=== PATIENT | male | born 1945 | race Asian ===

== ENCOUNTER → 2016-07-08 | Outpatient (CLI) | payer MEDICARE, OTHER ==
[~2016-07-08] MED LIST: AMLO-145 PO
[2016-07-08 13:14] LABS: ADD SCAN DIFF NO
[2016-07-08 13:29] LABS: BASOPHILS % 0.6 % (0.0-2.0); EOSINOPHILS # 0.1 10^3/ul (0.0-0.5); EOSINOPHILS % 1.7 % (0.0-7.0); HEMATOCRIT 43.7 % (42.0-52.0); HEMOGLOBIN 15.1 g/dl (14.0-18.0); LYMPHOCYTES # 1.7 10^3/ul (0.8-2.9); MEAN CORPUSCULAR HEMOGLOBIN 30.6 pg (29.0-33.0); MEAN CORPUSCULAR HGB CONC 34.6 g/dl (32.0-37.0); MEAN CORPUSCULAR VOLUME 88.6 fl (82.0-101.0); MEAN PLATELET VOLUME 8.8 fl (7.4-10.4); MONOCYTE # 0.4 10^3/ul (0.3-0.9); MONOCYTES % 8.4 % (0.0-11.0); NEUTROPHIL # 2.9 10^3/ul (1.6-7.5); NEUTROPHILS % 55.9 % (39.0-77.0); PLATELET COUNT 257 10^3/UL (140-415); RED BLOOD COUNT 4.93 10^6/ul (4.70-6.10); RED CELL DISTRIBUTION WIDTH 12.1 % (11.5-14.5); WHITE BLOOD COUNT 5.2 10^3/ul (4.8-10.8)
[2016-07-08 13:32] LABS: ALBUMIN 4.7 g/dl (3.3-4.9); ALBUMIN/GLOBULIN RATIO 1.23; BILIRUBIN,INDIRECT 0.4 mg/dl (0-1.1); BILIRUBIN,TOTAL 0.4 mg/dl (0.2-1.3); CALCIUM 9.8 mg/dl (8.4-10.2); CHOL/HDL RATIO 3.7 RATIO; CREATININE 1.01 mg/dl (0.61-1.24); POTASSIUM 4.1 mmol/L (3.5-5.1); TOTAL PROTEIN 8.5 g/dl (6.1-8.1)
[2016-07-08 14:00] LABS: THYROID STIMULATING HORMONE 2.16 MIU/L (0.465-4.680)
== END | disposition home or self-care (01) ==
LOC: LAB 12:45
PROVIDERS: ATTEND Internal Medicine
DX: E11.9 Type 2 diabetes mellitus without complications (principal); I10 Essential (primary) hypertension
CPT/HCPCS: 80053; 80061; 83036; 84443; 85025

== ENCOUNTER → 2016-09-01 | Outpatient (CLI) | payer MEDICARE, OTHER ==
--- NOTE | 2016-09-01 15:18 | RADRPT ---
PROCEDURE: XR Left Shoulder. CLINICAL INDICATION: Left shoulder pain. TECHNIQUE: Three views. Frontal internal rotation, frontal external rotation, and scapular Y-view . COMPARISON: No prior study is available for comparison. FINDINGS: There is no fracture or dislocation. There is grade 2 left acromioclavicular joint separation. Articular surfaces are intact. There is no lytic or blastic lesion. There is no radiopaque foreign body. IMPRESSION: 1. Grade II left AC joint separation. 2. Otherwise unremarkable images of the left shoulder. RPTAT: QQ .Klapesh Escamilla MD, MD Date Time Electronically viewed and signed by .Kalpesh Escamilla MD, MD on 09/01/2016 15:18 .R/
--- NOTE | 2016-09-01 15:18 | RADRPT ---
PROCEDURE: XR Lumbar Spine. CLINICAL INDICATION: Back pain. TECHNIQUE: Three views. AP, lateral and cone-down lateral view of the lumbar spine were obtained. COMPARISON: No prior studies are available for comparison. FINDINGS: There is normal stature and alignment of the vertebrae. There is no fracture. There is no lytic or blastic lesion. There are degenerative changes with osteophytes throughout. There is disk space narrowing and L4-5. Vascular calcifications are present consistent with atherosclerosis. IMPRESSION: 1. Degenerative changes as described above. 2. Atherosclerosis. RPTAT: QQ .Kalpesh Escamilla MD, MD Date Time Electronically viewed and signed by .Kalpesh Escamilla MD, on 09/01/2016 15:18 .R/
== END | disposition home or self-care (01) ==
LOC: RAD 11:36
PROVIDERS: ATTEND Internal Medicine
DX: M25.512 Pain in left shoulder (principal); M54.5 Low back pain
CPT/HCPCS: 72100; 73030

== ENCOUNTER 2017-11-03 08:16 | Day surgery (SDC) | END 2017-11-03 14:23 | disposition home or self-care (01) ==

== ENCOUNTER 2018-06-25 12:46 | Inpatient (IN) | payer MEDICARE, OTHER ==
[~2018-06-25] VITALS: Ht 170.2 cm; Wt 65.9 kg
[~2018-06-25 12:46] MED LIST changes: -AMLO-145 PO; +ATOR40TA68 PO; +LISI40TA3 PO; +MELO7.5O PO; +METF500T24 PO; +TAMS0.4C2 PO
[2018-06-25] MEDS ORDERED: DILTIAZEM 25 MG INJ IV STA (13:08)
[2018-06-25] MEDS ORDERED: DILTIAZEM-D5W 125MG/125ML DRIP 125 ML IV STA (13:08)
[2018-06-25] MEDS ORDERED: ENOXAPARIN 40 MG/0.4 ML SYG SC ONE (13:30)
[2018-06-25] MEDS ORDERED: ACETAMINOPHEN 325 MG TAB PO PRN ×2 (13:30→20:30)
[2018-06-25] MEDS ORDERED: ONDANSETRON 4 MG INJ IV PRN ×2 (13:30→20:30)
--- NOTE | 2018-06-25 13:33 | ERD ---
ER Documentation Chief Complaint Chief Complaint pt is loyda martinez, sent over by PMD for chest pain , dizziness HPI This is a 72-year-old male with a past medical history of rectal cancer status post resection and colostomy, hypertension, diabetes who is presenting with approximately 2 weeks of progressive worsening palpitations, lightheadedness, shortness of breath and feeling generally unwell. He does not endorse any chest pain currently, but he has had intermittent pain episodes described as waxing and waning, mild to moderate, left-sided, nonradiating and aching. The patient does not endorse any alleviating or exacerbating factors. The patient saw his primary care physician this morning who referred him to the emergency department for his symptoms. He had an irregularly irregular rhythm and was tachycardic in the office. The patient does not endorse any focal deficits. He does not endorse any weakness or numbness or tingling to the face or extremities. The patient denies fever or chills. The patient has had no headache or vision changes. The patient does not endorse neck or back pain. The patient denies nausea or vomiting. The patient denies abdominal pain. The patient denies changes to bowel movements or urination. ROS All systems reviewed and are negative except as per history of present illness. Medications Home Meds Reported Medications Lisinopril* (Lisinopril*) 40 Mg Tablet, 40 MG PO DAILY, #30 TAB 06/25/18 Tamsulosin Hcl* (Tamsulosin Hcl*) 0.4 Mg Cap.er.24h, 0.4 MG PO HS, CAP 06/25/18 Metformin Hcl* (Metformin Hcl*) 500 Mg Tablet, 500 MG PO WITH BREAKFAST DINNE, #60 TAB 06/25/18 Discontinued Reported Medications Atorvastatin* (Atorvastatin*) 40 Mg Tablet, 20 MG PO QHS, #30 TAB 11/03/17 Meloxicam* (Meloxicam*) 7.5 Mg/5 Ml Oral.susp, 15 MG PO DAILY, #300 ML 11/03/17 Tamsulosin Hcl* (Tamsulosin Hcl*) 0.4 Mg Cap.er.24h, 0.4 MG PO DAILY, CAP 11/03/17 Lisinopril* (Lisinopril*) 40 Mg Tablet, 40 MG PO DAILY, #30 TAB 11/03/17 Metformin Hcl* (Metformin Hcl*) 500 Mg Tablet, 500 MG PO BID WITH MEALS, #90 TAB 11/03/17 Allergies Allergies: Coded Allergies: No Known Allergy (Unverified , 06/25/18) PMhx/Soc History of Surgery: Yes (RECTAL SX.) Anesthesia Reaction: No Hx Neurological Disorder: No Hx Respiratory Disorders: No Hx Cardiac Disorders: No Hx Psychiatric Problems: No Hx Miscellaneous Medical Probl: Yes (PROSTATE, HTN) Hx Alcohol Use: Yes Hx Substance Use: No Hx Tobacco Use: Yes FmHx Family History: diabetes Physical Exam Vitals Vital Signs Date Temp Pulse Resp B/P (MAP) Pulse Ox O2 O2 Flow FiO2 Time Delivery Rate 06/25/18 98.3 101 20 162/74 98 13:04 (103) Physical Exam Const: No apparent distress, well-developed, well-nourished Head: Normocephalic, Atraumatic Eyes: Normal Conjunctiva. Extraocular movements intact. Pupils equal, round and reactive to light ENT: Normal External Ears, Nose and Mouth. Neck: Full range of motion. No meningismus. Resp: Clear to auscultation bilaterally, No wheezes, rales or rhonchi Cardio: Irregularly irregular rhythm. Tachycardia. No murmurs, rubs or gallops Abd: Soft, non tender, non distended. Normal bowel sounds. Colostomy in place. Skin: No petechiae or rashes Back: No midline tenderness. No CVA tenderness Ext: No cyanosis, or edema Neur: Awake and alert, oriented 4. Cranial nerves intact. No facial droop. Normal strength, sensation and coordination. Psych: Normal Mood and Affect Result Diagram: 06/25/18 1330 06/25/18 1330 Results 24 hrs Laboratory Tests Test 06/25/18 13:29 06/25/18 13:30 Free Thyroxine 0.95 ng/dl White Blood Count 5.3 10^3/ul Red Blood Count 5.02 10^6/ul Hemoglobin 15.2 g/dl Hematocrit 46.6 % Mean Corpuscular Volume 92.8 fl Mean Corpuscular Hemoglobin 30.3 pg Mean Corpuscular Hemoglobin Concent 32.6 g/dl Red Cell Distribution Width 12.4 % Platelet Count 225 10^3/UL Mean Platelet Volume 9.2 fl Immature Granulocytes % 0.400 % Neutrophils % 59.4 % Lymphocytes % 30.1 % Monocytes % 7.0 % Eosinophils % 2.3 % Basophils % 0.8 % Nucleated Red Blood Cells % 0.0 /100WBC Immature Granulocytes # 0.020 10^3/ul Neutrophils # 3.2 10^3/ul Lymphocytes # 1.6 10^3/ul Monocytes # 0.4 10^3/ul Eosinophils # 0.1 10^3/ul Basophils # 0.0 10^3/ul Nucleated Red Blood Cells # 0.0 10^3/ul Prothrombin Time 12.1 Sec Prothrombin Time Ratio 0.9 INR International Normalized Ratio 0.89 Sodium Level 141 mmol/L Potassium Level 4.3 mmol/L Chloride Level 105 mmol/L Carbon Dioxide Level 24 mmol/L Anion Gap 12 Blood Urea Nitrogen 23 mg/dl Creatinine 1.20 mg/dl Est Glomerular Filtrat Rate mL/min mL/min Glucose Level 94 mg/dl Calcium Level 9.9 mg/dl Troponin I < 0.012 ng/ml B-Type Natriuretic Peptide 95 PG/ML Current Medications Medications Dose Sig/Meghana Start Time Status Last (Trade) Ordered Route PRN Stop Time Admin Dose Reason Admin Diltiazem 20 mg ONCE STAT 06/25/18 DC 06/25/18 HCl IV 13:08 13:22 (Cardizem Iv) 06/25/18 13:14 Diltiazem 125 ml @ 5 ONCE STAT 06/25/18 HCl mls/hr IV 13:08 06/26/18 14:07 Ondansetron 4 mg ER BRIDGE 06/25/18 HCl (Zofran PRN IV 13:30 Inj) NAUSEA/VOMITI 06/26/18 13:29 NG 650 mg ER BRIDGE 06/25/18 Acetaminophen PRN PO 13:30 (Tylenol .MILD PAIN 06/26/18 13:29 Tab) 1-3 OR TEMP Enoxaparin 80 mg ONCE ONCE 06/25/18 DC 06/25/18 Sodium SC 13:30 13:22 (Lovenox) 06/25/18 13:31 Aspirin 324 mg ONCE ONCE 06/25/18 DC 06/25/18 (Aspirin) PO 14:00 14:42 06/25/18 14:01 Sodium 250 ml @ Q1H ONCE 06/25/18 DC Chloride 250 mls/hr IV 14:00 06/25/18 14:59 Sodium 1,000 ml @ [id number] IV 06/25/18 06/25/18 Chloride 75 mls/hr 15:00 14:44 06/26/18 04:19 Apixaban 5 mg BID PO 06/25/18 (Eliquis) 21:00 Diltiazem 120 mg BID PO 06/25/18 06/25/18 HCl 14:00 14:43 (Cardizem Cd) Procedures/MDM MDM The patient's presentation warrants further investigation. Previous medical records, if available, were reviewed. LABS The patient's laboratory testing was obtained and reviewed. No emergent treatment was required unless described below. CBC: No E/o systemic infection or severe anemia or thrombocytopenia Chemistry: No E/o severe acidosis or alkalosis or renal failure or diabetic ketoacidosis. Elevated BUN, potentially concerning for dehydration. PT/INR: No E/o significant coagulopathy Troponin: No E/o acute ischemia BNP: No E/o heart failure TFTs: Unremarkable EKG EKG read by me: Rate/Rhythm: Tachycardia, irregular regular rhythm and a pattern of atrial flutter with variable AV block. Intervals: Normal QRS. No P waves [place]: Normal Impression: No evidence of acute ischemia. Atrial flutter Repeat EKG read by me: Rate/Rhythm: Sinus rhythm at 63 bpm. Intervals: Normal QRS and QTc. Prolonged IL interval indicating a first- degree AV block. [place]: Normal Impression: No evidence of ischemia. First-degree AV block. IMAGING Imaging and Radiology interpretation reviewed. CXR FINDINGS: There is a right internal jugular approach implantable port with its tip projecting near the cavoatrial junction, similar to 02/08/2013. There is stable mild enlargement of the cardiac silhouette. The lungs are well expanded a nd show normal vascularity. No focal opacity, pleural effusion, or pneumothorax is identified. The skeletal structures and soft tissues are unremarkable. IMPRESSION: No evidence of an acute cardiopulmonary process. Stable mild cardiomegaly. Right sided implantable port in place. Electronically viewed and signed by Lillie Louise MD, MD on 06/25/2018 13:59 TREATMENT/DISPOSITION The patient presents in atrial flutter. This is been ongoing for approximately 2 weeks given his symptom duration. I do not feel that cardioversion would be appropriate at this time. The patient was given a dose of Lovenox in the emergency department. The patient will require an echocardiogram to evaluate for any clot burden. The patient was given Cardizem in the emergency department. The patient converted in the emergency department. He did not require a Cardizem drip. The patient's chest xray does not reveal pneumonia or pneumothorax or pleural effusions or pulmonary edema. The patient does not have a widened mediastinum and does not have signs or symptoms concerning for thoracic aortic aneurysm or dissection. The patient does not have pneumomediastinum or signs concerning for esophageal tear or rupture. The patient has no clinical or radiographic signs of pericardial effusion or tamponade. The patient does not have pneumoperitoneum and I have decreased suspicion of viscus perforation as possible referred pain. The patient does not have a history of heart failure and I have low suspicion for this. The patient does not have a diagnosis of COPD and is not wheezing today. The patient is not tachypneic or hypoxic. The patient is breathing comfortably and without pleuritic pain. The patient is not on hormonal therapy. The patient has no history of clotting or bleeding disorders. The patient has no calf tenderness. The patient has had no hemoptysis. I have decreased suspicion for PE. The patient's troponin is reassuring. His EKG does not reveal obvious acute ischemia. I have low suspicion for acute coronary syndrome. ADMISSION At this time, I feel that the patient requires admission for further evaluation and management. The patient will be admitted to Dr. Gallo in accordance with the patient's insurance. The patient was accepted to telemetry at 1320PM on 06/25/2018. CRITICAL CARE NOTE Time: 35 minutes excluding all billable procedures. Treatments/Evaluations: The patient was at risk of hemodynamic compromise. Timing of critical care involved close serial monitoring, evaluation of the patient's medical record including previous records & current laboratory/imaging studies, potential interventions for prevention of hemodynamic/ cardiopulmonary/ neurologic compromise, maintaining tight fluid balance, and any discussions with the family and/or consultants regarding the patient's status and prognosis. Disclaimer: Inadvertent spelling and grammatical errors are likely due to EHR/dictation software use and do not reflect on the overall quality of patient care. Note that the electronic time recorded on this note does not necessarily reflect the actual time of the patient encounter. Departure Diagnosis: Primary Impression: Atrial flutter Atrial flutter type: atypical Qualified Codes: I48.4 - Atypical atrial flutter Additional Impressions: Palpitations Shortness of breath Lightheadedness Elevated BUN Condition: Serious MILA GRAMAJO MD Jun 25, 2018 13:31
[2018-06-25] MEDS ORDERED: TAMS0.4C2 PO (13:50)
[2018-06-25] MEDS ORDERED: METF500T24 PO (13:50)
[2018-06-25] MEDS ORDERED: LISI40TA3 PO (13:51)
[2018-06-25] MEDS ORDERED: ASPIRIN 81 MG TAB PO ONE (14:00)
[2018-06-25] MEDS ORDERED: SOD CHLORIDE 0.9% 250 ML IV ONE (14:00)
--- NOTE | 2018-06-25 14:07 | CONS ---
Assessment/Plan Assessment/Plan Hospital Course (Demo Recall) Newly diagnosed atrial flutter with rapid ventricular rates, improved Hypertension Diabetes History of Colon cancer status post resection -Patient presented to his primary care physician with symptoms of dizziness, fatigue and lightheadedness found to be tachycardic. [facility] and found to be in atrial flutter with rapid ventricular rates. Patient given IV Cardizem and heart rate now controlled and feels significantly better -Some labs are still pending including TSH -Would adjust to p.o. Cardizem at the current time, until echo results -Check echocardiogram -In discussion with family, patient is active, exercises and is steady on his feet usually. Would continue anticoagulation at the current time. Consultation Date/Type/Reason Admit Date/Time Type of Consult Cardiology Reason for Consultation Arrhythmia Date/Time of Note DATE: 06/25/18 TIME: 13:59 Hx of Present Illness This is a 72-year-old male with past medical history of colon cancer status post surgery, hypertension, diabetes who presents with 2 weeks symptoms of not fee ling well and dizziness. Patient went to go see his primary care physician today and was found to be tachycardic and sent to the emergency room. Patient prior to this denies any chest pain, was having intermittent shortness of breath. Patient found to be in atrial flutter in the emergency room, once heart rate was controlled, his symptoms have improved significantly. Denies any current chest pain, shortness of breath or palpitations. He denies any dizziness or lightheadedness currently. 12 point review of systems was performed with all pertinent positives and negatives mentioned above and all else is negative Past Medical History Colon CA Medical History: diabetes, hypertension Home Meds Reported Medications Lisinopril* (Lisinopril*) 40 Mg Tablet, 40 MG PO DAILY, #30 TAB 06/25/18 Tamsulosin Hcl* (Tamsulosin Hcl*) 0.4 Mg Cap.er.24h, 0.4 MG PO HS, CAP 06/25/18 Metformin Hcl* (Metformin Hcl*) 500 Mg Tablet, 500 MG PO WITH BREAKFAST DINNE, #60 TAB 06/25/18 Discontinued Reported Medications Atorvastatin* (Atorvastatin*) 40 Mg Tablet, 20 MG PO QHS, #30 TAB 11/03/17 Meloxicam* (Meloxicam*) 7.5 Mg/5 Ml Oral.susp, 15 MG PO DAILY, #300 ML 11/03/17 Tamsulosin Hcl* (Tamsulosin Hcl*) 0.4 Mg Cap.er.24h, 0.4 MG PO DAILY, CAP 11/03/17 Lisinopril* (Lisinopril*) 40 Mg Tablet, 40 MG PO DAILY, #30 TAB 11/03/17 Metformin Hcl* (Metformin Hcl*) 500 Mg Tablet, 500 MG PO BID WITH MEALS, #90 TAB 11/03/17 Medications Current Medications Diltiazem HCl 125 ml @ 5 mls/hr ONCE STAT IV ; Start 06/25/18 at 13:08; Stop 06/26/18 at 14:07 Ondansetron HCl (Zofran Inj) 4 mg ER BRIDGE PRN IV NAUSEA/VOMITING; Start 06/25/18 at 13:30; Stop 06/26/18 at 13:29 Acetaminophen (Tylenol Tab) 650 mg ER BRIDGE PRN PO .MILD PAIN 1-3 OR TEMP; Start 06/25/18 at 13:30; Stop 06/26/18 at 13:29 Aspirin (Aspirin) 324 mg ONCE ONCE PO ; Start 06/25/18 at 14:00; Stop 06/25/18 at 14:01 Allergies: Coded Allergies: No Known Allergy (Unverified , 06/25/18) Past Surgical History Including but not limited to colol resection, port placement Family History Significant Family History: no pertinent family hx Social History Smoking Status: Former smoker Exam/Review of Systems Vital Signs Vitals Vital Signs Date Temp Pulse Resp B/P (MAP) Pulse Ox O2 O2 Flow FiO2 Time Delivery Rate 06/25/18 98.3 101 20 162/74 98 13:04 (103) Exam Exam nad, family at bedside Constitutional: alert, oriented Head: normocephalic Respiratory: clear to auscultation, normal air movement Cardiovascular: regular rate and rhythm (With occasional irregularities, sis2 heard) Gastrointestinal: soft, non-tender, bowel sounds Extremities: other (no edema) Labs Result Diagram: 06/25/18 1330 06/25/18 1330 Results 24hrs Laboratory Tests Test 06/25/18 13:30 White Blood Count 5.3 Red Blood Count 5.02 Hemoglobin 15.2 Hematocrit 46.6 Mean Corpuscular Volume 92.8 Mean Corpuscular Hemoglobin 30.3 Mean Corpuscular Hemoglobin Concent 32.6 Red Cell Distribution Width 12.4 Platelet Count 225 Mean Platelet Volume 9.2 Immature Granulocytes % 0.400 Neutrophils % 59.4 Lymphocytes % 30.1 Monocytes % 7.0 Eosinophils % 2.3 Basophils % 0.8 Nucleated Red Blood Cells % 0.0 Immature Granulocytes # 0.020 Neutrophils # 3.2 Lymphocytes # 1.6 Monocytes # 0.4 Eosinophils # 0.1 Basophils # 0.0 Nucleated Red Blood Cells # 0.0 Prothrombin Time 12.1 Prothrombin Time Ratio 0.9 INR International Normalized Ratio 0.89 Sodium Level 141 Potassium Level 4.3 Chloride Level 105 Carbon Dioxide Level 24 Anion Gap 12 Blood Urea Nitrogen 23 H Creatinine 1.20 Est Glomerular Filtrat Rate mL/min Glucose Level 94 Calcium Level 9.9 Troponin I Pending B-Type Natriuretic Peptide Pending Imaging Imaging ECG with atrial flutter at 116 bpm, QRS 90 ms, nonspecific ST abnormalities Medications Medications Current Medications Diltiazem HCl 125 ml @ 5 mls/hr ONCE STAT IV ; Start 06/25/18 at 13:08; Stop 06/26/18 at 14:07 Ondansetron HCl (Zofran Inj) 4 mg ER BRIDGE PRN IV NAUSEA/VOMITING; Start 06/25/18 at 13:30; Stop 06/26/18 at 13:29 Acetaminophen (Tylenol Tab) 650 mg ER BRIDGE PRN PO .MILD PAIN 1-3 OR TEMP; Start 06/25/18 at 13:30; Stop 06/26/18 at 13:29 Aspirin (Aspirin) 324 mg ONCE ONCE PO ; Start 06/25/18 at 14:00; Stop 06/25/18 at 14:01 Nakul Syed DO Jun 25, 2018 14:07
[2018-06-25] MEDS: DILTIAZEM (CD) 120 MG CAP PO SCH ×2 (14:43→20:57)
[2018-06-25] MEDS ORDERED: SOD CHLORIDE 0.9% 1,000 ML IV SCH (15:00)
[2018-06-25 18:30] VITALS: BP_SYST 167; BP_SYST 173; BP_DIAS 79; PULSE 60; RESP 20
[2018-06-25 18:43] VITALS: Ht 170.2 cm; Wt 65.9 kg
[2018-06-25 19:09] VITALS: BP 185/80; PULSE 60; RESP 20
[2018-06-25 20:00] VITALS: PULSE 64
[2018-06-25] MEDS ORDERED: HYDROCODONE/APAP (5/325) TAB PO PRN (20:30)
[2018-06-25] MEDS: APIXABAN 5 MG TABLET PO SCH (20:57)
[2018-06-25] MEDS ORDERED: DEXTROSE 50% 50 ML SYRINGE IV PRN ×2 (21:00)
[2018-06-25] MEDS ORDERED: GLUCOSE GEL 15 GRAM TUBE BUCCAL PRN (21:00)
[2018-06-25] MEDS ORDERED: GLUCAGON 1 MG INJ IM PRN (21:00)
[2018-06-25] MEDS ORDERED: GLUCOSE GEL 15 GRAM TUBE PO PRN ×2 (21:00)
[2018-06-25] MEDS: TAMSULOSIN (SR) 0.4 MG CAP PO SCH (22:40)
[2018-06-25 23:25] VITALS: BP_SYST 160; BP_SYST 177; BP_DIAS 78; BP_DIAS 79; PULSE 64; RESP 20
[2018-06-26] VITALS (13 sets, daily range): BP systolic 124–148; BP diastolic 61–78; PULSE 54–72; RESP 16–18
--- NOTE | 2018-06-26 05:16 | HP ---
DATE OF ADMISSION: 06/25/2018 CHIEF COMPLAINT: Dizziness, fatigue and shortness of breath. HISTORY OF PRESENT ILLNESS: The patient is a 72-year-old gentleman with hypertension, diabetes, amador gn prostatic hypertrophy and rectal cancer. The patient is status post abdominoperineal resection by Dr. Yu with colostomy placement. The patient also is status post radiation and chemotherapy. Th e patient came to my office after 11 months and was complaining of dizziness, fatigue and shortness o f breath. The patient denied any chest pain, no diaphoresis. The patient was feeling as if he was g oing to faint. The patient also had generalized weakness. The patient did not have any numbness, ti ngling in any extremity. There was no abdominal pain. The patient did not have any abdominal disten tion. No reported vomiting. No reported headache. The patient did have palpitations. Symptoms hav e been going on for last several days; however, he did not seek any medical advice and today when sym ptoms got worse, he decided to come to the office. The patient was clinically noted to have tachycar vale and was sent to [facility] ER where he was noted to be in atrial flutter with rapid vent ricular response. The patient was given IV Cardizem and started on IV Cardizem drip and also receive d a therapeutic dose of Lovenox along with aspirin. The patient is being admitted for further evalua tion and management. REVIEW OF SYSTEMS: As above. In addition, the patient did not have any fever or chills. No history of nausea, vomiting. No history of abdominal pain. No history of leg edema. No history of resting leg pain. No history of weakness or paresthesias in any extremities. No history of any acute skin rash or any joint pain. A total of 12 systems reviewed, all pertinent positive and negative findings have been described in the HPI. ALLERGIES: NO KNOWN DRUG ALLERGIES. MEDICATIONS: The patient was on: 1. Flomax. 2. Lisinopril. 3. Metformin. FAMILY HISTORY: Negative for coronary artery disease and gastrointestinal malignancy. SOCIAL HISTORY: No smoking or alcohol. PHYSICAL EXAMINATION: GENERAL: The patient to be awake, alert, fairly oriented. VITAL SIGNS: When patient arrived in the ER, temperature 98.3, pulse 101, respirations 20, blood pre ssure 160/74, O2 saturation 98%. The patient was in atrial flutter. HEENT: Atraumatic, normocephalic. Conjunctivae and lids normal. Pupils round, reactive to light. Oropharynx grossly negative. Ear and nose normal. NECK: Supple. No carotid bruit, no JVD, no mass. CHEST: Fairly clear. No use of accessory muscles. CARDIOVASCULAR: The patient is in atrial flutter. No murmur, gallop, or rub. ABDOMEN: Soft, nondistended, nontender. Colostomy in place with brown stool. No palpable mass. EXTREMITIES: No pedal edema. No clubbing or cyanosis. NEUROLOGIC: The patient is awake, alert, fairly oriented with no gross focal deficit. LYMPHATICS: Negative in neck and axilla. LABORATORY DATA: Done in the ER, WBC 5.8, hemoglobin 15.2, platelet 225, no left shift. Sodium 141, potassium 4.3, BUN 20, creatinine 1.2, glucose 94, calcium 9.9. Troponin negative. BNP 95. TSH 1. 7. IMAGING: Chest x-ray: No evidence of acute cardiopulmonary process, right-sided implantable port in place. IMPRESSION AND PLAN: 1. Atrial flutter with rapid ventricular response. Continue Cardizem and the patient has received d ose of Lovenox, but will be switched to Eliquis to prevent CVA. 2. Hypertension. We will continue Cardizem to control blood pressure also. 3. Diabetes. Continue metformin and will put him on sliding scale. 4. Rectal cancer status post surgery, chemo and radiation, no active issue. The patient has been ad vised to follow with Dr. Yu as well as Dr. Maciel. The patient was also referred to GI as an outpa tient since the patient has not had any GI screening after he was diagnosed with a rectal CA. The pa tient is poorly compliant with his appointment and as mentioned above, came to my office after almost 11 months. 5. Benign prostatic hypertrophy. Continue Flomax. 6. Will obtain complete metabolic panel and lipid panel as well as hemoglobin A1c. A 2D echocardiog josé will also be obtained. A cardiac consult with Dr. Syed has been requested. I spoke with Dr. Mook ySed for cardiac consult and also spoke with Dr. Gideon Shannon, ER physician regarding plan of care. We will continue to follow. Plan of care discussed with the patient's [id number]. Dictated By: DIMITRI HORTA/SYMONE Conf#: [id number] DID#: [id number]
[2018-06-26] MEDS: INSULIN ASPART [NOVOLOG] 3 ML PEN SC SCH ×3 (07:00→17:30)
[2018-06-26] MEDS: metFORMIN 500 MG TAB PO SCH ×2 (07:39→17:08)
[2018-06-26] MEDS: LISINOPRIL 20 MG TAB PO SCH (08:21)
[2018-06-26] MEDS: APIXABAN 5 MG TABLET PO SCH ×2 (08:21→20:04)
[2018-06-26] MEDS: DILTIAZEM (CD) 120 MG CAP PO SCH (08:21)
[2018-06-26] MEDS ORDERED: AMIODARONE 900 MG in DEXTROSE 5% 482 ML IV SCH (18:30)
[2018-06-26] MEDS ORDERED: AMIODARONE 150MG/D5W BOLUS 100 ML IV ONE (18:30)
[2018-06-26] MEDS ORDERED: DIPHENHYDRAMINE 50 MG CAP PO ONE (19:30)
--- NOTE | 2018-06-26 19:51 | PN ---
DATE: 06/26/2018 SUBJECTIVE: Follow up on atrial flutter, hypertension, rectal cancer, diabetes, and benign prostatic hypertrophy. The patient has converted to sinus rhythm and now has been placed on Cardizem-CD orall y. The patient also is tolerating Eliquis for CVA prophylaxis. The patient's TSH came back as 2.1. Echocardiogram result is still pending. LABORATORIES DONE: This morning: Sodium 140, potassium 4, BUN 20, creatinine 1, fasting glucose was 104. ASSESSMENT AND PLAN: 1. Hypertension. Blood pressure reasonably controlled with current dose of Cardizem. The patient t ends to have a heart rate as low as 54; therefore, I will decrease the dose of Cardizem to 90 mg b.i. d. and will continue lisinopril. 2. Diabetes. Blood sugar reviewed. ____ the patient has excellent control. Hemoglobin A1c came ba ck as 6. Continue metformin and sliding scale insulin. 3. Dyslipidemia. Liver enzymes are normal. Liver enzymes done today revealed AST 23, ALT 20, alkal ine phosphatase 150. LDL was only 33. We will continue to monitor him off antihyperlipidemic treatm ent. 4. BPH. The patient is voiding well with current dose of Flomax. Plan of care discussed with patient's grandson. Dictated By: DIMITRI HORTA/SYMONE Conf#: [id number] DID#: [id number]
[2018-06-26] MEDS: TAMSULOSIN (SR) 0.4 MG CAP PO SCH (20:04)
[2018-06-26] MEDS ORDERED: DILTIAZEM (SR) 90 MG CAP PO SCH (21:00)
[2018-06-27] VITALS (14 sets, daily range): BP systolic 67–175; BP diastolic 40–91; PULSE 53–73; RESP 18
[2018-06-27] MEDS: INSULIN ASPART [NOVOLOG] 3 ML PEN SC SCH ×3 (06:19→17:30)
[2018-06-27] MEDS: metFORMIN 500 MG TAB PO SCH ×2 (07:32→17:37)
[2018-06-27] MEDS: APIXABAN 5 MG TABLET PO SCH ×2 (08:32→20:30)
[2018-06-27] MEDS: LISINOPRIL 20 MG TAB PO SCH (08:32)
--- NOTE | 2018-06-27 09:47 | RADRPT ---
Echocardiogram Report Patient Name: RAMIN MARXPatient ID: [id number] : 1945 (72y 11m)Study Date: 06/26/2018 9:37:57 AM Gender: MAccession #: [id number] Tech: TAE Location: Ref.Physician: JASMIN UGARTE Height(Cm): 173 BSA: 1.93Weight(Kg): 77.6 Quality: AdequateAccount #: Procedures: Echocardiographic Report: Transthoracic echocardiogram with complete 2D, M-Mode, and doppler examination. Indications: Atrial Flutter. Measurements: 2D/M Mode Doppler Measurement Value Normal Range Measurement Value Normal Range LVIDd 2D 4.0 [ 4.2 - 5.8 ] cm AV Peak Michael 1.0 [ 100.0 - 170.0 ] cm/se c LVIDs 2D 2.8 [ 2.5 - 4.0 ] cm AV Peak PG 4.0 [ 2.0 - 9.0 ] mmHg LVPWd 2D 1.2 [ 0.6 - 1.0 ] cm LVOT Peak Michael 0.7 [ 70.0 - 110.0 ] cm/sec IVSd 2D 1.2 [ 0.6 - 1.0 ] cm LVOT Peak PG 2.0 [ 2.0 - 6.0 ] mmHg AoR Diam 2D 3.9 [ 2.6 - 3.4 ] cm MV E Peak Michael 0.6 [ 60.0 - 130.0 ] cm/sec EDV 2D 69.6 [ 62.0 - 150.0 ] ml MV A Peak Michael 0.7 [ 100.0 - 120.0 ] cm/se c ESV 2D 28.5 [ 21.0 - 61.0 ] ml MV E/A 0.9 [ 0.8 - 1.5 ] ratio EF 2D 59.1 [ 52.0 - 72.0 ] percent MV PHT 67.0 [ 20.0 - 100.0 ] msec LA Dimen 2D 3.9 [ 3.0 - 4.0 ] cm MV Decel Time 230 [ 104 - 258 ] msec MV Decel [place] 3 Lat E` Michael 0.1 [ 10.0 - 15.0 ] cm/sec Lateral E/E` 6.0 [ 1.0 - 2.0 ] ratio Med E` Michael 0.1 cm/sec MV E/A 0.9 [ 0.8 - 1.5 ] ratio MVA PHT 3.3 [ 2.0 - 4.0 ] cm2 TR Peak Michael 1.8 [ 100.0 - 280.0 ] cm/se c TR Peak PG 13.0 mmHg PV Peak Michael 1.1 [ 40.0 - 80.0 ] cm/sec PV Peak PG 4.0 mmHg RVSP 16.0 [ 10.0 - 36.0 ] mmHg RA Pressure 3.0 mmHg Findings: Left Ventricle: Normal left ventricular systolic function. Normal left ventricular cavity size. Mild concentric left ventricular hypertrophy. Ejection fraction is visually estimated at 65 %. Tissue Doppler/Mitral Doppler indices are consistent with impaired relaxation (Stage I diastolic dysfunction). E/E'= 6. Right Ventricle: Normal right ventricular size. Normal right ventricular systolic function. Left Atrium: The left atrium is normal in size. Right Atrium: The right atrium is normal in size. Atrial Septum: Atrial septum color Doppler interrogation is possibly consistent with a PFO, imaged best in subcostal images. Mitral Valve: Normal appearance of the mitral valve. Mild mitral valve regurgitation. Aortic Valve: Normal trileaflet aortic valve structure. Trace aortic valve regurgitation. Tricuspid Valve: Normal appearance and function of the tricuspid valve with trace physiologic regurgitation. Estimated peak PA systolic pressure 16 mmHg. Pulmonic Valve: Normal pulmonic valve appearance. There is trace pulmonic regurgitation. Pericardium: Normal pericardium with no significant pericardial effusion. Aorta: There is mild aortic root dilation. IVC: Normal size and normal respiratory collapse consistent with normal right atrial pressure. Pulmonary Artery: Normal pulmonary artery size. Conclusions: Normal left ventricular systolic function. Normal left ventricular cavity size. Mild concentric left ventricular hypertrophy. Ejection fraction is visually estimated at 65 %. Tissue Doppler/Mitral Doppler indices are consistent with impaired relaxation (Stage I diastolic dysfunction). E/E'= 6. Atrial septum color Doppler interrogation is possibly consistent with a PFO, imaged best in subcostal images. Normal trileaflet aortic valve structure. Trace aortic valve regurgitation. Normal appearance of the mitral valve. Mild mitral valve regurgitation. n. Electronically Signed By: Camron Wayne 2018-06-27 09:46:25 PDT
--- NOTE | 2018-06-27 10:42 | CONS ---
Assessment/Plan Assessment/Plan Hospital Course (Demo Recall) symptomatic atrial flutter contineu Eliquis preserved EF now in sinus will start Amiodarone PO would consider outpatient ablation given bradycardia Consultation Date/Type/Reason Admit Date/Time Type of Consult Cardiology Date/Time of Note DATE: 06/27/18 TIME: 10:39 Hx of Present Illness patient admitted with new onset of atrial flutter and palpitations symptomatic. Converted yesterday to NSR after bolus of Amiodarone. Amiodaorne drip disconitnued for bradycardia. Currently feels well Constitutional: no complaints Respiratory: no complaints Cardiovascular: no complaints Gastrointestinal: no complaints Musculoskeletal: no complaints Neurologic: no complaints Past Medical History Medical History: diabetes, hypertension Home Meds Reported Medications Lisinopril* (Lisinopril*) 40 Mg Tablet, 40 MG PO DAILY, #30 TAB 06/25/18 Tamsulosin Hcl* (Tamsulosin Hcl*) 0.4 Mg Cap.er.24h, 0.4 MG PO HS, CAP 06/25/18 Metformin Hcl* (Metformin Hcl*) 500 Mg Tablet, 500 MG PO WITH BREAKFAST DINNE, #60 TAB 06/25/18 Discontinued Reported Medications Atorvastatin* (Atorvastatin*) 40 Mg Tablet, 20 MG PO QHS, #30 TAB 11/03/17 Meloxicam* (Meloxicam*) 7.5 Mg/5 Ml Oral.susp, 15 MG PO DAILY, #300 ML 11/03/17 Tamsulosin Hcl* (Tamsulosin Hcl*) 0.4 Mg Cap.er.24h, 0.4 MG PO DAILY, CAP 11/03/17 Lisinopril* (Lisinopril*) 40 Mg Tablet, 40 MG PO DAILY, #30 TAB 11/03/17 Metformin Hcl* (Metformin Hcl*) 500 Mg Tablet, 500 MG PO BID WITH MEALS, #90 TAB 11/03/17 Medications Current Medications Apixaban (Eliquis) 5 mg BID PO Last administered on 06/27/18at 08:32; Admin Dose 5 MG; Start 06/25/18 at 21:00 Acetaminophen (Tylenol Tab) 650 mg Q6H PRN PO MILD PAIN(1-3)OR ELEVATED TEMP; Start 06/25/18 at 20:30 Ondansetron HCl (Zofran Inj) 4 mg Q6H PRN IV NAUSEA AND/OR VOMITING; Start 06/25/18 at 20:30 Acetaminophen/ Hydrocodone Bitart ([place] (5/325)) 1 tab Q6H PRN PO PAIN LEVEL 7-10; Start 06/25/18 at 20:30 Insulin Aspart (Novolog Insulin Pen) NOVOLOG *MILD* ALGORITHM AC MEALS SC ; Start 06/26/18 at 07:00 Miscellaneous Information 1 ea NOTE XX ; Start 06/25/18 at 21:00 Glucose (Glutose) 15 gm Q15M PRN PO DECREASED GLUCOSE; Start 06/25/18 at 21:00 Glucose (Glutose) 22.5 gm Q15M PRN PO DECREASED GLUCOSE; Start 06/25/18 at 21:00 Dextrose (D50w Syringe) 25 ml Q15M PRN IV DECREASED GLUCOSE; Start 06/25/18 at 21:00 Dextrose (D50w Syringe) 50 ml Q15M PRN IV DECREASED GLUCOSE; Start 06/25/18 at 21:00 Glucagon (Glucagen) 1 mg Q15M PRN IM DECREASED GLUCOSE; Start 06/25/18 at 21:00 Glucose (Glutose) 15 gm Q15M PRN BUCCAL DECREASED GLUCOSE; Start 06/25/18 at 21:00 Lisinopril (Zestril) 40 mg DAILY PO Last administered on 06/27/18at 08:32; Admin Dose 40 MG; Start 06/26/18 at 09:00 Metformin HCl (Glucophage) 500 mg BID WITH MEALS PO Last administered on 06/27/18at 07:32; Admin Dose 500 MG; Start 06/26/18 at 08:00 Tamsulosin HCl (Flomax) 0.4 mg HS PO Last administered on 06/26/18at 20:04; Admin Dose 0.4 MG; Start 06/25/18 at 22:00 Amiodarone HCl 900 mg/Dextrose 500 ml @ 0 mls/hr Q0M IV Last administered on 06/26/18at 22:08; Admin Dose 16.7 MLS/HR; Start 06/26/18 at 18:30; Stop 06/27/18 at 23:59 Allergies: Coded Allergies: No Known Allergy (Unverified , 06/25/18) Social History Smoking Status: Former smoker Exam/Review of Systems Vital Signs Vitals Vital Signs Date Temp Pulse Resp B/P (MAP) Pulse Ox O2 O2 Flow FiO2 Time Delivery Rate 06/27/18 63 08:00 06/27/18 Nasal 2.0 07:51 Cannula 06/27/18 97.8 18 154/73 98 07:13 (100) Intake and Output 06/26/18 06/26/18 06/27/18 1515:00 23:00 07:00 IntakeIntake Total 1170 ml 120 ml OutputOutput Total 1550 ml 800 ml BalanceBalance -380 ml -680 ml Exam Constitutional: alert, oriented Respiratory: clear to auscultation Cardiovascular: regular rate and rhythm; No murmurs/extra sounds Gastrointestinal: soft Extremities: No edema Labs Result Diagram: 06/25/18 1330 06/26/18 0503 Results 24hrs Laboratory Tests Test 06/26/18 11:37 06/26/18 17:29 06/27/18 06:16 06/27/18 07:32 Bedside Glucose 105 136 139 112 Medications Medications Current Medications Apixaban (Eliquis) 5 mg BID PO Last administered on 06/27/18at 08:32; Admin Dose 5 MG; Start 06/25/18 at 21:00 Acetaminophen (Tylenol Tab) 650 mg Q6H PRN PO MILD PAIN(1-3)OR ELEVATED TEMP; Start 06/25/18 at 20:30 Ondansetron HCl (Zofran Inj) 4 mg Q6H PRN IV NAUSEA AND/OR VOMITING; Start 06/25/18 at 20:30 Acetaminophen/ Hydrocodone Bitart ([place] (5/325)) 1 tab Q6H PRN PO PAIN LEVEL 7-10; Start 06/25/18 at 20:30 Insulin Aspart (Novolog Insulin Pen) NOVOLOG *MILD* ALGORITHM AC MEALS SC ; Start 06/26/18 at 07:00 Miscellaneous Information 1 ea NOTE XX ; Start 06/25/18 at 21:00 Glucose (Glutose) 15 gm Q15M PRN PO DECREASED GLUCOSE; Start 06/25/18 at 21:00 Glucose (Glutose) 22.5 gm Q15M PRN PO DECREASED GLUCOSE; Start 06/25/18 at 21:00 Dextrose (D50w Syringe) 25 ml Q15M PRN IV DECREASED GLUCOSE; Start 06/25/18 at 21:00 Dextrose (D50w Syringe) 50 ml Q15M PRN IV DECREASED GLUCOSE; Start 06/25/18 at 21:00 Glucagon (Glucagen) 1 mg Q15M PRN IM DECREASED GLUCOSE; Start 06/25/18 at 21:00 Glucose (Glutose) 15 gm Q15M PRN BUCCAL DECREASED GLUCOSE; Start 06/25/18 at 21:00 Lisinopril (Zestril) 40 mg DAILY PO Last administered on 06/27/18at 08:32; Admin Dose 40 MG; Start 06/26/18 at 09:00 Metformin HCl (Glucophage) 500 mg BID WITH MEALS PO Last administered on 06/27/18at 07:32; Admin Dose 500 MG; Start 06/26/18 at 08:00 Tamsulosin HCl (Flomax) 0.4 mg HS PO Last administered on 06/26/18at 20:04; Admin Dose 0.4 MG; Start 06/25/18 at 22:00 Amiodarone HCl 900 mg/Dextrose 500 ml @ 0 mls/hr Q0M IV Last administered on 06/26/18at 22:08; Admin Dose 16.7 MLS/HR; Start 06/26/18 at 18:30; Stop 06/27/18 at 23:59 ROBERT RAMIREZ MD Jun 27, 2018 10:42
[2018-06-27] MEDS: TAMSULOSIN (SR) 0.4 MG CAP PO SCH (20:30)
[2018-06-27] MEDS ORDERED: hydrALAzine 20 MG INJ IV PRN (20:30)
[2018-06-28] VITALS (16 sets, daily range): BP systolic 66–172; BP diastolic 32–82; PULSE 61–74; RESP 18–22
[2018-06-28] MEDS ORDERED: hydrALAzine 20 MG INJ IV PRN (00:30)
[2018-06-28] MEDS ORDERED: SOD CHLORIDE 0.9% 500 ML IV ONE (00:30)
[2018-06-28] MEDS: INSULIN ASPART [NOVOLOG] 3 ML PEN SC SCH ×3 (06:47→17:11)
[2018-06-28] MEDS: metFORMIN 500 MG TAB PO SCH ×2 (08:08→17:11)
[2018-06-28] MEDS: APIXABAN 5 MG TABLET PO SCH ×2 (08:08→21:16)
[2018-06-28] MEDS: LISINOPRIL 20 MG TAB PO SCH (08:09)
[2018-06-28] MEDS: AMIODARONE 200 MG TAB PO SCH (08:09)
--- NOTE | 2018-06-28 09:27 | PN ---
DATE: 06/27/2018 SUBJECTIVE: Follow up on hypertension, paroxysmal atrial fibrillation, dyslipidemia, and diabetes. The patient was admitted with new onset of atrial flutter with symptomatic palpitations and dizziness . The patient converted to sinus rhythm after amiodarone bolus. Currently amiodarone drip has been discontinued due to bradycardia. The patient has been started on p.o. amiodarone. The patient denie s any chest pain or dizziness. No abdominal pain. The patient is awake and alert. PHYSICAL EXAMINATION: VITAL SIGNS: Temperature 98, pulse 60, respirations 18, blood pressure 159/72, O2 saturation 97% on 2 liters nasal cannula. HEENT: Conjunctivae normal. Oropharynx is clear. NECK: Supple, lymph node, thyromegaly. CHEST: Fairly clear. CARDIOVASCULAR: S1, S2 normal, no murmur. ABDOMEN: Soft, nondistended, nontender. Colostomy is working well. ASSESSMENT AND PLAN: 1. Paroxysmal atrial flutter. Continue p.o. amiodarone and Eliquis for CVA prophylaxis. 2. Hypertension. Continue with Zestril. 3. Diabetes. Continue Glucophage. 4. Benign prostatic hypertrophy. Continue Flomax. 5. 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 Dictated By: DIMITRI BOYCE MD AB/NTS Conf#: [id number] DID#: [id number] CC: DIMITRI BOYCE MD;*EndCC*
--- NOTE | 2018-06-28 12:22 | CONS ---
Assessment/Plan Assessment/Plan Hospital Course (Demo Recall) Newly diagnosed atrial flutter-currently sinus rhythm Hypertension Diabetes Preserved ejection fraction History of Colon cancer status post resection -Patient remains in sinus rhythm, currently on amiodarone, no AV arnav blocking agent given bradycardia -Continue anticoagulation as tolerated -Outpatient electro physiology evaluation for possible ablation given bradycardia with AV arnav blocking agent Consultation Date/Type/Reason Admit Date/Time Jun 25, 2018 at 13:14 Initial Consult Date Type of Consult Cardiology Date/Time of Note DATE: 06/28/18 TIME: 12:20 24 HR Interval Summary Free Text/Dictation Patient seen and examined. No shortness of breath, palpitations Exam/Review of Systems Vital Signs Vitals Vital Signs Date Temp Pulse Resp B/P (MAP) Pulse Ox O2 O2 Flow FiO2 Time Delivery Rate 06/28/18 70 12:01 06/28/18 96.8 22 135/68 96 Room Air 2.0 11:44 (90) Nasal Cannula Intake and Output 06/27/18 06/27/18 06/28/18 1515:00 23:00 07:00 IntakeIntake Total 920 ml 700 ml OutputOutput Total 300 ml 300 ml BalanceBalance 620 ml 400 ml Exam Constitutional: alert, oriented (No apparent distress) Head: normocephalic Respiratory: clear to auscultation, normal air movement Cardiovascular: regular rate and rhythm (S1-S2 heard) Gastrointestinal: soft, non-tender, bowel sounds Extremities: other (No significant edema) Labs Result Diagram: 06/25/18 1330 06/26/18 0503 Results 24hrs Laboratory Tests Test 06/27/18 17:35 06/28/18 06:47 06/28/18 11:47 Bedside Glucose 85 93 70 Medications Medications Current Medications Apixaban (Eliquis) 5 mg BID PO Last administered on 06/28/18at 08:08; Admin Dose 5 MG; Start 06/25/18 at 21:00 Acetaminophen (Tylenol Tab) 650 mg Q6H PRN PO MILD PAIN(1-3)OR ELEVATED TEMP; Start 06/25/18 at 20:30 Ondansetron HCl (Zofran Inj) 4 mg Q6H PRN IV NAUSEA AND/OR VOMITING; Start 06/25/18 at 20:30 Acetaminophen/ Hydrocodone Bitart ([place] (5/325)) 1 tab Q6H PRN PO PAIN LEVEL 7-10; Start 06/25/18 at 20:30 Insulin Aspart (Novolog Insulin Pen) NOVOLOG *MILD* ALGORITHM AC MEALS SC ; Start 06/26/18 at 07:00 Miscellaneous Information 1 ea NOTE XX ; Start 06/25/18 at 21:00 Glucose (Glutose) 15 gm Q15M PRN PO DECREASED GLUCOSE; Start 06/25/18 at 21:00 Glucose (Glutose) 22.5 gm Q15M PRN PO DECREASED GLUCOSE; Start 06/25/18 at 21:00 Dextrose (D50w Syringe) 25 ml Q15M PRN IV DECREASED GLUCOSE; Start 06/25/18 at 21:00 Dextrose (D50w Syringe) 50 ml Q15M PRN IV DECREASED GLUCOSE; Start 06/25/18 at 21:00 Glucagon (Glucagen) 1 mg Q15M PRN IM DECREASED GLUCOSE; Start 06/25/18 at 21:00 Glucose (Glutose) 15 gm Q15M PRN BUCCAL DECREASED GLUCOSE; Start 06/25/18 at 21:00 Lisinopril (Zestril) 40 mg DAILY PO Last administered on 06/28/18at 08:09; Admin Dose 40 MG; Start 06/26/18 at 09:00 Metformin HCl (Glucophage) 500 mg BID WITH MEALS PO Last administered on 06/28/18at 08:08; Admin Dose 500 MG; Start 06/26/18 at 08:00 Tamsulosin HCl (Flomax) 0.4 mg HS PO Last administered on 06/27/18at 20:30; Admin Dose 0.4 MG; Start 06/25/18 at 22:00 Amiodarone HCl (Cordarone) 200 mg DAILY PO Last administered on 06/28/18at 08:09; Admin Dose 200 MG; Start 06/28/18 at 09:00 Hydralazine HCl (Apresoline) 10 mg Q6 PRN IV SBP OVER 160; Start 06/28/18 at 00:30 Nakul Syed DO Jun 28, 2018 12:22
--- NOTE | 2018-06-28 13:44 | PN ---
Date/Time of Note Date/Time of Note DATE: 06/28/18 TIME: 13:32 Assessment/Plan VTE Prophylaxis Risk score (from Ns)>0 risk: 5 SCD applied (from Ns): Yes Pharmacological prophylaxis: apixaban Lines/Catheters IV [facility] [place] Urinary Cath still in place: No Assessment/Plan Hospital Course Patient is awake alert, denies any palpitations denies chest pain denies shortness of breath. Assessment/Plan -Newly diagnosed atrial flutter, currently sinus rhythm with first-degree block. Patient is currently on amiodarone, continue telemetry monitoring. Dr. Syed is following in cardiology consultation. Continue Eliquis. Outpatient electro physiology evaluation for possible ablation given bradycardia with AV arnav blocking agent is recommended. -Preserved ejection fraction -Hypertension. -Dyslipidemia -Diabetes -BPH, continue Flomax. -Rectal cancer status post surgery, chemo and radiation, no active issue. Further recommendations based on clinical course. Plan of care discussed with Dr. Gallo. Result Diagram: 06/25/18 1330 06/26/18 0503 Results 24hrs Laboratory Tests Test 06/27/18 17:35 06/28/18 06:47 06/28/18 11:47 Bedside Glucose 85 93 70 Exam/Review of Systems Exam Vitals Vital Signs Date Temp Pulse Resp B/P (MAP) Pulse Ox O2 O2 Flow FiO2 Time Delivery Rate 06/28/18 70 12:01 06/28/18 96.8 22 135/68 96 Room Air 2.0 11:44 (90) Nasal Cannula Intake and Output 06/27/18 06/27/18 06/28/18 1515:00 23:00 07:00 IntakeIntake Total 920 ml 700 ml OutputOutput Total 300 ml 300 ml BalanceBalance 620 ml 400 ml Constitutional: alert, oriented Neck: supple Respiratory: clear to auscultation Cardiovascular: regular rate and rhythm Gastrointestinal: soft, non-tender Musculoskeletal: nl extremities to inspection Extremities: normal pulses Neurological: nl mental status Results Results 24hrs Laboratory Tests Test 06/27/18 17:35 06/28/18 06:47 06/28/18 11:47 Bedside Glucose 85 93 70 Medications Medication Current Medications Apixaban (Eliquis) 5 mg BID PO Last administered on 06/28/18at 08:08; Admin Dose 5 MG; Start 06/25/18 at 21:00 Acetaminophen (Tylenol Tab) 650 mg Q6H PRN PO MILD PAIN(1-3)OR ELEVATED TEMP; Start 06/25/18 at 20:30 Ondansetron HCl (Zofran Inj) 4 mg Q6H PRN IV NAUSEA AND/OR VOMITING; Start 06/25/18 at 20:30 Acetaminophen/ Hydrocodone Bitart ([place] (5/325)) 1 tab Q6H PRN PO PAIN LEVEL 7-10; Start 06/25/18 at 20:30 Insulin Aspart (Novolog Insulin Pen) NOVOLOG *MILD* ALGORITHM AC MEALS SC ; Start 06/26/18 at 07:00 Miscellaneous Information 1 ea NOTE XX ; Start 06/25/18 at 21:00 Glucose (Glutose) 15 gm Q15M PRN PO DECREASED GLUCOSE; Start 06/25/18 at 21:00 Glucose (Glutose) 22.5 gm Q15M PRN PO DECREASED GLUCOSE; Start 06/25/18 at 21:00 Dextrose (D50w Syringe) 25 ml Q15M PRN IV DECREASED GLUCOSE; Start 06/25/18 at 21:00 Dextrose (D50w Syringe) 50 ml Q15M PRN IV DECREASED GLUCOSE; Start 06/25/18 at 21:00 Glucagon (Glucagen) 1 mg Q15M PRN IM DECREASED GLUCOSE; Start 06/25/18 at 21:00 Glucose (Glutose) 15 gm Q15M PRN BUCCAL DECREASED GLUCOSE; Start 06/25/18 at 21:00 Lisinopril (Zestril) 40 mg DAILY PO Last administered on 06/28/18at 08:09; Admin Dose 40 MG; Start 06/26/18 at 09:00 Metformin HCl (Glucophage) 500 mg BID WITH MEALS PO Last administered on 06/28/18at 08:08; Admin Dose 500 MG; Start 06/26/18 at 08:00 Tamsulosin HCl (Flomax) 0.4 mg HS PO Last administered on 06/27/18at 20:30; Admin Dose 0.4 MG; Start 06/25/18 at 22:00 Amiodarone HCl (Cordarone) 200 mg DAILY PO Last administered on 06/28/18at 08:09 ; Admin Dose 200 MG; Start 06/28/18 at 09:00 Hydralazine HCl (Apresoline) 10 mg Q6 PRN IV SBP OVER 160; Start 06/28/18 at 00:30 ZAYRA COOK Jun 28, 2018 13:42
[2018-06-28] MEDS: TAMSULOSIN (SR) 0.4 MG CAP PO SCH (21:16)
[2018-06-29] VITALS (10 sets, daily range): BP systolic 99–148; BP diastolic 59–71; PULSE 61–88; RESP 20
[2018-06-29] MEDS ORDERED: ZOLPIDEM 5 MG TAB PO PRN (01:30)
[2018-06-29] MEDS: INSULIN ASPART [NOVOLOG] 3 ML PEN SC SCH ×2 (07:00→11:30)
[2018-06-29] MEDS: APIXABAN 5 MG TABLET PO SCH (08:07)
[2018-06-29] MEDS: AMIODARONE 200 MG TAB PO SCH (08:08)
[2018-06-29] MEDS: metFORMIN 500 MG TAB PO SCH (08:08)
[2018-06-29] MEDS: LISINOPRIL 20 MG TAB PO SCH (08:12)
[2018-06-29] MEDS ORDERED: AMIO200T4 PO (14:39)
[2018-06-29] MEDS ORDERED: APIX5TAB PO (14:39)
--- NOTE | 2018-06-29 15:28 | CONS ---
Assessment/Plan Assessment/Plan Hospital Course (Demo Recall) Newly diagnosed atrial flutter-currently sinus rhythm Hypertension Diabetes Preserved ejection fraction History of Colon cancer status post resection -Patient in sinus rhythm, currently on amiodarone, no AV arnav blocking agent given bradycardia -Continue anticoagulation as tolerated -Outpatient electro physiology evaluation for possible ablation given bradycardia with AV arnav blocking agent -DC planning Consultation Date/Type/Reason Admit Date/Time Jun 25, 2018 at 13:14 Initial Consult Date Type of Consult Cardiology Date/Time of Note DATE: 06/29/18 TIME: 15:27 24 HR Interval Summary Free Text/Dictation No palpitations, chest pain or shortness of breath Exam/Review of Systems Vital Signs Vitals Vital Signs Date Temp Pulse Resp B/P (MAP) Pulse Ox O2 O2 Flow FiO2 Time Delivery Rate 06/29/18 98.8 79 20 148/71 94 Room Air 15:09 (96) 06/29/18 2.0 10:05 Intake and Output 06/28/18 06/28/18 06/29/18 1515:00 23:00 07:00 IntakeIntake Total 550 ml 320 ml OutputOutput Total 650 ml 1400 ml BalanceBalance -100 ml -1080 ml Exam Constitutional: alert, oriented (No apparent distress) Head: normocephalic Respiratory: clear to auscultation, normal air movement Cardiovascular: regular rate and rhythm (S1-S2 heard) Gastrointestinal: soft, non-tender, bowel sounds Extremities: other (No edema) Labs Result Diagram: 06/29/18 0512 06/29/18 0512 Results 24hrs Laboratory Tests Test 06/28/18 17:10 06/29/18 05:12 06/29/18 08:05 06/29/18 11:36 Bedside Glucose 97 109 84 White Blood Count 5.8 Red Blood Count 4.83 Hemoglobin 14.8 Hematocrit 43.1 Mean Corpuscular 89.2 Volume Mean Corpuscular 30.6 Hemoglobin Mean Corpuscular 34.3 Hemoglobin Concent Red Cell 12.3 Distribution Width Platelet Count 214 Mean Platelet Volume 8.8 Immature 0.500 H Granulocytes % Neutrophils % 63.5 Lymphocytes % 24.6 Monocytes % 7.6 Eosinophils % 3.3 Basophils % 0.5 Nucleated Red Blood 0.0 Cells % Immature 0.030 Granulocytes # Neutrophils # 3.7 Lymphocytes # 1.4 Monocytes # 0.4 Eosinophils # 0.2 Basophils # 0.0 Nucleated Red Blood 0.0 Cells # Sodium Level 141 Potassium Level 3.9 Chloride Level 105 Carbon Dioxide Level 25 Anion Gap 11 Blood Urea Nitrogen 25 H Creatinine 1.20 Est Glomerular Filtrat Rate mL/min Glucose Level 99 Calcium Level 9.4 Magnesium Level 2.0 Medications Medications Current Medications Apixaban (Eliquis) 5 mg BID PO Last administered on 06/29/18at 08:07; Admin Dose 5 MG; Start 06/25/18 at 21:00 Acetaminophen (Tylenol Tab) 650 mg Q6H PRN PO MILD PAIN(1-3)OR ELEVATED TEMP; Start 06/25/18 at 20:30 Ondansetron HCl (Zofran Inj) 4 mg Q6H PRN IV NAUSEA AND/OR VOMITING; Start 06/25/18 at 20:30 Acetaminophen/ Hydrocodone Bitart ([place] (5/325)) 1 tab Q6H PRN PO PAIN LEVEL 7-10; Start 06/25/18 at 20:30 Insulin Aspart (Novolog Insulin Pen) NOVOLOG *MILD* ALGORITHM AC MEALS SC ; Start 06/26/18 at 07:00 Miscellaneous Information 1 ea NOTE XX ; Start 06/25/18 at 21:00 Glucose (Glutose) 15 gm Q15M PRN PO DECREASED GLUCOSE; Start 06/25/18 at 21:00 Glucose (Glutose) 22.5 gm Q15M PRN PO DECREASED GLUCOSE; Start 06/25/18 at 21: 00 Dextrose (D50w Syringe) 25 ml Q15M PRN IV DECREASED GLUCOSE; Start 06/25/18 at 21:00 Dextrose (D50w Syringe) 50 ml Q15M PRN IV DECREASED GLUCOSE; Start 06/25/18 at 21:00 Glucagon (Glucagen) 1 mg Q15M PRN IM DECREASED GLUCOSE; Start 06/25/18 at 21:00 Glucose (Glutose) 15 gm Q15M PRN BUCCAL DECREASED GLUCOSE; Start 06/25/18 at 21:00 Lisinopril (Zestril) 40 mg DAILY PO Last administered on 06/29/18at 08:12; Admin Dose 40 MG; Start 06/26/18 at 09:00 Metformin HCl (Glucophage) 500 mg BID WITH MEALS PO Last administered on 06/29/18at 08:08; Admin Dose 500 MG; Start 06/26/18 at 08:00 Tamsulosin HCl (Flomax) 0.4 mg HS PO Last administered on 06/28/18at 21:16; Admin Dose 0.4 MG; Start 06/25/18 at 22:00 Amiodarone HCl (Cordarone) 200 mg DAILY PO Last administered on 06/29/18 08:08; Admin Dose 200 MG; Start 06/28/18 at 09:00 Hydralazine HCl (Apresoline) 10 mg Q6 PRN IV SBP OVER 160 Last administered on 06/28/18at 22:56; Admin Dose 10 MG; Start 06/28/18 at 00:30 Zolpidem Tartrate (Ambien) 5 mg HS PRN PO INSOMNIA Last administered on 06/29/18at 01:31; Admin Dose 5 MG; Start 06/29/18 at 01:30 Nakul Syed DO Jun 29, 2018 15:28
== END 2018-06-29 16:45 | disposition home or self-care (01) | DRG 310 ==
LOC: E/R 12:46 → 6WM 13:14
PROVIDERS: ADMIT Internal Medicine; ATTEND Internal Medicine
DX: I48.92 Unspecified atrial flutter (principal); E11.9 Type 2 diabetes mellitus without complications; I10 Essential (primary) hypertension; N40.0 Benign prostatic hyperplasia without lower urinary tract symptoms; E78.5 Hyperlipidemia, unspecified; I44.0 Atrioventricular block, first degree; Z93.3 Colostomy status; Z85.048 Personal history of other malignant neoplasm of rectum, rectosigmoid junction, and anus; Z79.84 Long term (current) use of oral hypoglycemic drugs; Z92.21 Personal history of antineoplastic chemotherapy; Z92.3 Personal history of irradiation
CPT/HCPCS: 36415; 71045; 80048; 80053; 80061; 82550; 82553; 82962; 83036; 83735; 83880; 84439; 84443; 84484; 85025; 85610; 93005; 93306; J0282; J0360; J1650; J1815; J7040; J7060